=== PATIENT | male | born 1970 | race African-American/Black ===

== ENCOUNTER 2018-11-30 05:45 | Emergency (ER) | payer SELFPAY ==
[~2018-11-30] VITALS: Ht 190.5 cm; Wt 190.0 kg
[2018-11-30] MEDS ORDERED: NITROGLYCERIN OINT 1GM/INCH UDPKT TD ONE (07:00)
[2018-11-30] MEDS ORDERED: BUMETANIDE 1MG/4ML VIAL IV ONE (07:00)
[2018-11-30] MEDS ORDERED: CLONIDINE 0.2MG TABLET PO ONE (07:00)
[2018-11-30] MEDS ORDERED: MAGNESIUM/ALUMINUM HYDROXIDE/SIMETHICONE 30ML UDC PO ONE (07:00)
[2018-11-30] MEDS ORDERED: LORAZEPAM 2MG/ML CPJ IV ONE ×2 (07:00→09:30)
[2018-11-30] MEDS ORDERED: ASPIRIN 81MG TABLET PO ONE (07:00)
[2018-11-30] MEDS ORDERED: VISCOUS LIDOCAINE 2% 15 ML UDC MM STA (07:55)
[2018-11-30 08:08] LABS: EOSINOPHILS % 3.7 % (0.0-5.0); HEMATOCRIT. 36.3 % (42.0-52.0); HEMOGLOBIN. 11.3 g/dL (14.0-18.0); LYMPHOCYTES % 20.9 % (20.0-50.0); MEAN CORPUSCULAR HEMOGLOBIN 26.2 pg (28.0-32.0); MEAN CORPUSCULAR VOLUME 84.1 fL (80.0-94.0); MEAN PLATELET VOLUME 8.7 fl (7.4-10.4); MONOCYTES % 9.2 % (2.0-8.0); NEUTROPHILS % 65.2 % (40.0-76.0); PLATELET 228 x1000/uL (130-400); RED BLOOD CELL COUNT 4.32 mill/uL (4.7-6.1); RED CELL DISTRIBUTION WIDTH 19.9 % (11.6-14.6)
[2018-11-30 08:14] LABS: CHLORIDE 104 mEq/L (98-107)
[2018-11-30 08:17] LABS: INR 1.1; PARTIAL THROMBOPLASTIN TIME 27.4 sec (23.4-31.0); PROTHROMBIN TIME 11.2 sec (9.1-11.1)
[2018-11-30 08:35] VITALS: BP 164/74
== END 2018-11-30 10:31 | disposition left against medical advice (07) ==
LOC: ER 05:45 → ENRESERV 09:58 → CANRESERV 09:58 → ER 10:31 → CANBEDREQ 10:56
DX: R06.02 Shortness of breath (principal); F41.9 Anxiety disorder, unspecified; I11.0 Hypertensive heart disease with heart failure; I50.9 Heart failure, unspecified; E66.9 Obesity, unspecified; Z88.8 Allergy status to other drugs, medicaments and biological substances; Z90.49 Acquired absence of other specified parts of digestive tract
CPT/HCPCS: 36415; 71045; 78580; 80053; 83690; 83880; 84484; 85025; 85379; 85610; 85730; 96374; 96375; 96376; 99284; A9540; J2060; J3490